=== PATIENT | female | born 1990 | race Caucasian/White ===

== ENCOUNTER 2018-05-16 10:24 | Emergency (ER) | payer OTHER ==
--- OUTSIDE RECORDS SUMMARY | 2018-05-16 10:27 | XMS REPORT ---
:1990 [facility] Address [address] [place] [address] Care Team Providers Name Role Phone Unavailable Unavailable Unavailable Payers Payer Name Policy Type Policy Number Effective Date Expiration Date Problems This patient has no known problems. Allergies, Adverse Reactions, Alerts Allergy Name Allergy Status Severity Reaction(s) Onset Inactive Treating Comments Type Date Date Clinician mauriciotriptpao SCHROEDER Active MO 2018-03 00:00:0 0 Medications This patient has no known medications. Results Test Description Test Time Test Comments Text Results Atomic Results Result Comments THYROID STIMULATING HORMONE 2018-04-19 14:22:00 Test Item Value Reference Range Comments THYROID STIMULATING HORMONE 9.48 0.36-3.74 Test Performed in [employer] (test code=TSH) Units/mL COMPREHENSIVE METABOLIC [id number] 14:21:00 Test Item Value Reference Range Comments SODIUM (test code=NA) 137 mEq/L 135-145 POTASSIUM (test code=K) 4.0 mEq/L 3.5-5.0 CHLORIDE (test code=CL) 102 mEq/L 100-115 CARBON DIOXIDE (test code=CO2) 23 mEq/L 22-31 ANION GAP (test code=GAP) 16.50 10-20 GLUCOSE (test code=GLU) 94 mg/dL 65-110 BLOOD UREA NITROGEN (test code=BUN) 8 mg/dL 7-18 GLOMERULAR FILTRATION RATE (test code=GFR) 76 ml/min >60 CREATININE (test code=CREAT) 0.9 mg/dL 0.5-1.0 TOTAL PROTEIN (test code=PROT) 8.2 gm/dL 6.3-8.2 ALBUMIN (test code=ALB) 3.6 gm/dL 3.4-4.8 CALCIUM (test code=CA) 9.6 mg/dL 8.4-10.2 BILIRUBIN TOTAL (test code=BILT) 0.5 mg/dL 0.2-1.0 SGOT/AST (test code=AST) 39 units/L 15-37 SGPT/ALT (test code=ALT) 46 units/L 12-78 ALKALINE PHOSPHATASE TOTAL (test code=ALKP) 69 units/L 46-116 [id number] 14:21:00 Test Item Value Reference Range Comments AMYLASE (test code=NAVEED) 34 units/L 30-110 [id number] 14:21:00 Test Item Value Reference Range Comments LIPASE (test code=LIP) 131 units/L 73-393 UA RFLX MICR CULT IF [id number] 13:58:00 Test Item Value Reference Range Comments UA COLOR (test code=COLU) YELLOW YELLOW UA APPEARANCE (test code=APPU) CLOUDY CLEAR UA GLUCOSE DIPSTICK (test code=DGLUU) NEGATIVE NEG UA BILIRUBIN DIPSTICK (test code=BILU) NEGATIVE NEG UA KETONE DIPSTICK (test code=KETU) NEGATIVE NEG UA SPECIFIC GRAVITY (test code=SGU) 1.020 1.001-1.035 UA BLOOD DIPSTICK (test code=KIRBY) NEG NEG UA PH DIPSTICK (test code=SAMIR) 5.0 5-9 UA PROTEIN DIPSTICK (test code=PROU) NEGATIVE NEG UA UROBILINIOGEN DIPSTICK (test code=URO) NEGATIVE mg/dL NEG UA NITRITE DIPSTICK (test code=ERNESTINE) POSITIVE NEG UA LEUKOCYTE ESTERASE DIPSTICK (test 3+ NEG code=LEUU) UA WBC (test code=WBCU) 16-20 #/hpf NONE SEEN UA RBC (test code=RBCU) 6-10 #/hpf NONE SEEN UA EPITHELIAL CELLS (test code=EPIU) MODERATE #/HPF RARE-FEW UA BACTERIA (test code=BACU) MODERATE /HPF RARE-FEW UA MUCUS (test code=MUCU) RARE NONE SEEN CBC W/AUTO [id number] 13:53:00 Test Item Value Reference Range Comments WHITE BLOOD CELL (test code=WBC) 10.6 K/mm3 6.6-12.1 RED BLOOD CELL (test code=RBC) 4.23 M/mm3 3.45-5.01 HEMOGLOBIN (test code=HGB) 12.6 g/dL 10.7-13.9 HEMATOCRIT (test code=HCT) 37.2 % 32.1-42.1 MEAN CELL VOLUME (test code=MCV) 88 fL 84.1-94.8 MEAN CELL HGB (test code=MCH) 29.8 pg 27-35 MEAN CELL HGB CONCETRATION (test code=MCHC) 33.9 gm/dL 32.2-34.1 RED CELL DISTRIBUTION WIDTH (test code=RDW) 12.3 % 12.4-16.5 PLATELET COUNT (test code=PLT) 357 K/mm3 133-385 IMMATURE PLATELET FRACTION (test code=IPF) 2.4 % 0.0-10.8 MEAN PLATELET VOLUME (test code=MPV) 10.1 fl 9.1-12.7 NEUTROPHIL % (test code=NT%) 68.4 % 56.5-79.4 LYMPHOCYTE % (test code=LY%) 25.0 % 14.3-34.3 MONOCYTE % (test code=MO%) 5.2 % 5.1-10.4 EOSINOPHIL % (test code=EO%) 0.6 % 0.1-3.0 BASOPHIL % (test code=BA%) 0.4 % 0.1-1.0 NEUTROPHIL # (test code=NT#) 7.3 K/mm3 LYMPHOCYTE # (test code=LY#) 2.7 K/mm3 MONOCYTE # (test code=MO#) 0.6 K/mm3 EOSINOPHIL # (test code=EO#) 0.06 K/mm3 BASOPHIL # (test code=BA#) 0.0 K/mm3 RBC MORPHOLOGY REQUIRED (test code=RBCM) NORMAL NORMAL PLATELET MORPHOLOGY REQUIRED (test code=PLTMR) NORMAL NORMAL - US PRG [facility] [id number] 14:28:00 Patient Name: DANNY FOLEY Unit No: [id number] EXAMS: CPT CODE : [id number] US PRG TRI ADD [id number] [facility]'[address] [address] OBSTETRICAL ULTRASOUND REPORT FETUS A Pat. Name: DANNY FOLEY Pat. No: [id number] StudyDate: 04/06/2018 12: 19pm , Age: 04 1990, 27 Pregnancies: 4, Para 2 LMP: GA by LMP: 18w0d GA by US: 05w5d GA Selected: 05w5d (From Largest) LA NENA: 12/02/2018 Referring MD: Anton Lehman Attendant Sales: Shahana Leon RDMS CPT4: [id number] Hist/Ind: VAGINAL BLEEDING SCAN 1 MEASUREMENTS AGE GROWTH EVALUATION Measurement GA Range Srce %for GA Ratios -------- --- ----- ---- ------- CRL 0.2 cm 05w5d (46j2d-61z4h) Hadl CRL 50% GA for sonogram 05w5d (14n7s-25v0g) based on (CRL) Avg Heart Rate: 98 bpm MATERNAL ANATOMY Ovaries LxHxW (cm) Right 3.1 x 1.7 x 1.4 Vol: 3.9cc Left 2.9x 2.4 x 2.6 Vol: 9.5cc Ovarian Cysts LxHxW (cm) L1: 2.2 x 1.8 x 2.1 Desc: Corpus Luteum CLINICAL SUMMARY Type of Gestation: monochorionic, diamniotic Twin A Intrauterine in variable presentation. size is LESS THAN LMP (HX OF IRREGULAR CYCLES) motion and organs seen: heart motion seen abnormalities observed: None seen at this exam Placental location: Forming Amniotic fluid volume is normal. Uterus and adnexa: Subchorionic bleed in lower left uterus-15x 10x 24mm Recommend repeat in 2 weeks for progression. Thank you for allowing us to participate in the care of this patient. [facility] NAME: DANNY FOLEY Radiology Department PHYS: Anton Medina [address] : 1990 AGE: 27 SEX: F [place], [place] [address] LOC: JENI PHONE #: [phone] EXAM DATE: 04/06/2018 STATUS: KASIA ER FAX #: [phone] RAD NO: Page 1 Signed Report (CONTINUED) Patient Name: DANNY FOLEY Unit No: [id number] EXAMS: CPT CODE: [id number] US PRG 1ST TRI [place] ADD [id number] &lt ;Continued> Jeff Ya M.D. Electronic Signature 04/06/2018 02:28pm FETUS B Pat. Name: DANNY FOLEY Pat. No: [id number] Study Date: 04/06/2018 12:19pm , Age: 04 1990, 27 Pregnancies: 4, Para 2 LMP: 12/01/2017 GA by LMP: 18w0d GA by US: 05w5d GA Selected: 05w5d (From Largest) LA NENA: 12/02/2018 Referring MD: ANTON LEHMAN Attendant Sales: Shahana Leon RDMS CPT4: [id number] Hist/Ind: VAGINAL BLEEDING SCAN 1 MEASUREMENTS AGE GROWTH EVALUATION Measurement GA Range Srce % for GARatios ----- ---- ------- ---- CRL 0.2 cm 05w5d (90u1m-41z0k) Hadl CRL 50% GA for sonogram 05w5d (05w2d -w) based on (CRL) AvgFetal Heart Rate: 85 bpm MATERNAL ANATOMY Ovaries LxHxW(cm) Right 3.1 x 1.7 x 1.4 Vol: 3.9cc Left 2.9 x 2.4 x 2.6 Vol: 9.5cc Ovarian Cysts LxHxW (cm) L1: 2.2 x 1.8 x 2.1 Desc: Corpus Luteum CLINICAL SUMMARY Type of Gestation: monochorionic, diamniotic Twin B Intrauterine in variable presentation. size is LESS THAN LMP (HX OF IRREGULAR CYCLES) motion and organs seen: heart motion seenFetal abnormalities observed: None seen at this exam Placental location: Forming Amniotic fluid volume is normal. Uterus and adnexa: Subchorionic bleed in lower left uterus-15x 10x 24mm Recommend repeat in 2 weeks for progression. Thank you for allowing us to participate in the care of this [facility] NAME: [facility] Radiology Department PHYS: MARIAH Franny LehmanAnton [address] : 1990 AGE: 27 SEX: F [place] [address] LOC: RobbyERS PHONE #: EXAM DATE: 04/06/2018 STATUS: DEP ER FAX #: RAD NO: Page 2 Signed Report (CONTINUED) Patient Name: DANNY FOLEY Unit No: [id number] EXAMS: CPT CODE: [id number] US PRG 1ST TRI EA ADD 47205 <Continued> patient. Jeff Ya M.D. ----- Electronic Signature 04/06/2018 02:28pm at 1428 Reported and signed by: Nat Ya MD CC : Kate Ornelas MD; Anton Lehman MD Technologist:Shahana Leon RDMS Probe: Trnscrbd D/ (1428) t.[email or web address].[email or web address] Orig Print D/T: S: 04/11/2018 (1258) [facility] NAME: [facility] Radiology Department PHYS: LATHA LehmanAnton [address] : 1990 AGE: 27 SEX: [place] [address] LOC: IvonneERS PHONE #: EXAM DATE: 04/06/2018 STATUS: DEP ER FAX #: [phone] RAD NO: Page 3 Signed Report Patient Name: DANNY FOLEY Unit No: [id number] EXAMS: CPT CODE: [id number] US PRG 1ST TRI EA ADD [id number] < Continued> [facility] NAME: DANNY FOLEY Radiology Department PHYS: Anton Medina [address] : 1990 AGE: 27 SEX: F [place], [place] [address]WYTQ NO: [id number] LOC: JENI PHONE #: [phone] EXAM DATE: 04/06/2018 STATUS: DEP ER FAX #: [phone] RAD NO: Page 4 Signed Report- US PREG UT [id number] 14:28:00 Patient Name: DANNY FOLEY Unit No: [id number] EXAMS : CPT CODE: [id number] US PREG [place] TRANSVAGINAL [address] [facility] [address] [place], [place] [address] OBSTETRICAL ULTRASOUND REPORT FETUS A Pat. Name: DANNY FOLEY Pat. No: [id number] StudyDate: 04/06/2018 12:19pm , Age: 04 1990, 27 Pregnancies: 4, Para 2 LMP: 12/01/2017 GA by LMP: 18w0d GA by US: 05w5d GA Selected: 05w5d (From Largest) LA NENA: 12/02/2018 Referring MD : Anton Lehman Attendant Sales: Shahana Leon RDMS CPT4: [id number] Hist/Ind: VAGINAL BLEEDING SCAN 1 MEASUREMENTS AGE GROWTH EVALUATION Measurement GA Range Srce % for GA Ratios ----- ---- ------- ----- CRL 0.2 cm 05w5d (83r3s-97t8c) Hadl CRL 50% GA for sonogram 05w5d ( 11r7d-86m3v) based on (CRL) Avg Heart Rate: 98 bpm - MATERNAL ANATOMY Ovaries LxHxW (cm) Right 3.1 x 1.7 x 1.4 Vol: 3.9cc Left 2.9x 2.4 x 2.6 Vol : 9.5cc - Ovarian Cysts LxHxW (cm) L1: 2.2 x 1.8 x 2.1 Desc: Corpus Luteum CLINICAL SUMMARY Type of Gestation: monochorionic, diamniotic Twin A Intrauterine in variable presentation. size is LESS THAN LMP (HX OF IRREGULAR CYCLES ) motion and organs seen: heart motion seen abnormalities observed: None seen at this exam Placental location: Forming Amniotic fluid volume is normal. Uterus and adnexa: Subchorionic bleed in lower left uterus-15x 10x 24mm Recommend repeat in 2 weeks for progression. Thank you for allowing us to participate in the care of this patient. [facility] NAME: DANNY FOLEY Radiology Department PHYS: Anton Medina [address] : 1990 AGE : 27 SEX: F [place], [place] [address] LOC : JENI PHONE #: [phone] EXAM DATE: 04/06/2018 STATUS : [facility] ER FAX #: [phone] RAD NO: Page 1 Signed Report (CONTINUED) Patient Name: DANNY FOLEY Unit No: [id number] EXAMS: CPT CODE: [id number] US PREG MT TRANSVAGINAL [address] <Continued> Jeff Ya M.D. Electronic Signature 04/06/2018 02:28pm FETUS B Pat. Name: DANNY FOLEY Pat. No: [id number] Study Date: 04/06/2018 12:19pm , Age: 04 1990, 27 Pregnancies: 4, Para 2 LMP: 12/01/2017 GA by LMP: 18w0d GA by US: 05w5d GA Selected: 05w5d (From Largest) LA NENA: 12/02/2018 Referring MD: ANTON LEHMAN Attendant Sales: Shahana Leon RDMS CPT4: [id number] Hist/Ind: VAGINAL BLEEDING SCAN 1 ------ MEASUREMENTS AGE GROWTH EVALUATION Measurement GA Range Srce %for GARatios ----- ---- ------- CRL 0.2 cm 05w5d (40o0y-60z5r) Hadl CRL 50% GA for sonogram 05w5d (03w2n-14o8p) based on (CRL) AvgFetal Heart Rate: 85 bpm MATERNAL ANATOMY ----- Ovaries LxHxW (cm) Right 3.1 x 1.7 x 1.4 Vol: 3.9cc Left 2.9 x 2.4 x 2.6 Vol: 9.5cc ----- Ovarian Cysts LxHxW (cm) L1: 2.2 x 1.8 x 2.1 Desc: Corpus Luteum CLINICAL SUMMARY Type of Gestation: monochorionic, diamniotic Twin B Intrauterine in variable presentation. size is LESS THAN LMP (HX OF IRREGULAR CYCLES) motion and organs seen: heart motion seenFetal abnormalities observed: None seen at this exam Placental location: Forming Amniotic fluid volume is normal. Uterus and adnexa: Subchorionic bleed in lower left uterus-15x 10x 24mm Recommend repeat in 2 weeks for progression. Thank you for allowing us to participate in the care of this [facility] NAME: DANNY FOLEY Radiology Department PHYS: Anton Veronica [address] : 1990 AGE: 27 SEX: F [place], [place] [address] LOC: JENI PHONE #: [phone] EXAM DATE: 04/06/2018 STATUS: DEP ER FAX #: [phone] RAD NO: Page 2 Signed Report (CONTINUED) Patient Name: DANNY FOLEY Unit No: [id number] EXAMS: CPT CODE: [id number] [facility] TRANSVAGINAL [address] <Continued> patient. Jeff Ya M.D. Electronic Signature 04/06/2018 02:28pm at 1428 Reported and signed by: Nat Ya MD CC: Kate Ornelas MD; Anton Lehman MD Technologist:Shahana Leon Probe: [id number] Trnscrbd D/T : 04/06/2018 (1423) Johan Orig Print D/T: S: 04/11/2018 (1250) [facility] NAME: DANNY FOLEY Radiology Department PHYS: [facility] [address] : 1990 AGE: 27 SEX: F [place] [address] [facility] #: [phone] EXAM DATE: 04/06/2018 STATUS: DEP ER FAX #: [phone] RAD NO: Page 3 Signed Report Patient Name: DANNY FOLEY Unit No: [id number] EXAMS: CPT CODE: [id number] US PREG UT TRANSVAGINAL [address] <Continued> [facility] NAME: DANNY FOLEY Radiology Department PHYS: [facility] [address] : 1990 AGE: 27 SEX: [place], [place] [address]XXZM NO: [id number] LOC: IvonneERS PHONE #: [phone] EXAM DATE: 04/06/2018 STATUS: DEP ER FAX #: [phone] RAD NO: Page 4 Signed Report- US PREG EVAL 1ST [id number] 14:28:00 Patient Name: DANNY FOLEY Unit No : [id number] EXAMS: CPT CODE: [id number] US PREG EVAL 1ST TRIMTR [address] [facility] [address] [place], [place] [address] OBSTETRICAL ULTRASOUND REPORT ---------FETUS A Pat. Name: DANNY FOLEY Pat. No: [id number] StudyDate: 04/06/2018 12:19pm , Age: [birth year] 27 Pregnancies: 4, Para 2 LMP: 12/01/2017 GA by LMP: 18w0d GA by US: 05w5d GA Selected: 05w5d (From Largest) LA NENA: Referring MD: ANTON LEHMAN Attendant Sales: Shahana Leon RDMS CPT4: [id number] Hist/Ind: VAGINAL BLEEDING SCAN 1 MEASUREMENTS AGE GROWTH EVALUATION Measurement GA Range Srce %for GA Ratios ----- ---- ------ - CRL 0.2 cm 05w5d (63d1a-02i5c) Hadl CRL 50% GA for sonogram 05w5d (43t7y-56n3b) based on (CRL) Avg Heart Rate: 98 bpm MATERNAL ANATOMY Ovaries LxHxW (cm) Right 3.1 x 1.7 x 1.4 Vol: 3.9cc Left 2.9x 2.4 x 2.6 Vol: 9.5cc Ovarian Cysts LxHxW (cm) L1: 2.2 x 1.8 x 2.1 Desc: Corpus Luteum ----- CLINICAL SUMMARY Type of Gestation: monochorionic, diamniotic Twin A Intrauterine in variable presentation. size is LESS THAN LMP (HX OF IRREGULAR CYCLES) motion and organs seen: heart motion seen abnormalities observed: None seen at this exam Placental location: Forming Amniotic fluid volume is normal. Uterus and adnexa: Subchorionic bleed in lower left uterus-15x 10x 24mm Recommend repeat in 2 weeks for progression. Thank you for allowing us to participate in the care of this patient. [facility] NAME: DANNY FOLEY Radiology Department PHYS: Anton Medina [address] : 1990 AGE: 27 SEX: F [place], [place] [address] LOC: JNEI PHONE #: [phone] EXAM DATE: 04/06/2018 STATUS: REG ER FAX #: [phone] RAD NO: Page 1 Signed Report ( CONTINUED) Patient Name: DANNY FOLEY Unit No: [id number] EXAMS: CPT CODE: [id number] US PREG EVAL 1ST TRIMTR 81156 <Continued> Jeff Ya M.D. Electronic Signature 04/06/2018 02:28pm -- FETUS B Pat. Name : DANNY FOLEY Pat. No: [id number] Study Date: 04/06/2018 12:19pm , Age: 04 1990, 27 Pregnancies: 4, Para 2 LMP: GA by LMP: 18w0d GA by US: 05w5d GA Selected: 05w5d (From Largest ) LA NENA: 12/02/2018 Referring MD: ANTON LEHMAN Attendant Sales: Shahana Leon RDMS CPT4: [id number] Hist/Ind: VAGINAL BLEEDING SCAN 1 MEASUREMENTS AGE GROWTH EVALUATION Measurement GA Range Srce %for GARatios ---- - ---- ------- CRL 0.2 cm 05w5d (05w2d -06w1d) Hadl CRL 50% GA for sonogram 05w5d (66q0h-51u1u) based on (CRL) AvgFetal Heart Rate: 85 bpm MATERNAL ANATOMY Ovaries LxHxW(cm) Right 3.1 x 1.7 x 1.4 Vol: 3.9cc Left 2.9 x 2.4 x 2.6 Vol: 9.5cc Ovarian Cysts LxHxW (cm) L1: 2.2 x 1.8 x 2.1 Desc: Corpus Luteum --- CLINICAL SUMMARY Type of Gestation: monochorionic, diamniotic Twin B Intrauterine in variable presentation. size is LESS THAN LMP (HX OF IRREGULAR CYCLES) motion and organs seen: heart motion seenFetal abnormalities observed: None seen at this exam Placental location: Forming Amniotic fluid volume is normal. Uterus and adnexa: Subchorionic bleed in lower left uterus-15x 10x 24mm Recommend repeat in 2 weeks for progression. Thank you for allowing us to participate in the care of this [facility] NAME: DANNY FOLEY Radiology Department PHYS: Anton Medina [address] : AGE: 27 SEX: F [place] [address] LOC: IvonneERS PHONE #: [phone] EXAM DATE: STATUS: REG ER FAX #: [phone] RAD NO: Page 2 Signed Report (CONTINUED) Patient Name: DANNY FOLEY Unit No: [id number] EXAMS : CPT CODE: [id number] US PREG [id number] TRIMTR [address]1533 <Continued> patient. Jeff Ya M.D. Electronic Signature 02:28pm Electronically Signed by Nat Ya MD on 04/06 at 1428 Reported and signed by: Nat Ya MD CC: Kate Ornelas MD; Anton Lehman MD Technologist:Shahana Leon RDMS Probe: Trnscrbd D/ (1428) t.SDR.CER Orig Print D/T: S: 04/06/2018 (1430) [facility] NAME : DANNY FOLEY Radiology Department PHYS: Anton Medina [address] : 1990 AGE: 27 SEX: F [place] [address] LOC: IvonneERS PHONE #: [phone] EXAM DATE: STATUS: REG ER FAX #: [phone] RAD NO: Page 3 Signed Report Patient Name: DANNY FOLEY Unit No: [id number] EXAMS: CPT CODE: [id number] US PREG EVAL 1ST TRIMTR 311[address] <Continued> [facility] [place] [facility] NAME: DANNY FOLEY Radiology Department PHYS: LATHA Franny Lehman Anton [address] : 1990 AGE: 27 SEX: F [place], [place] [address]JMRM NO: [id number] LOC: IvonneERS PHONE #: [phone] EXAM DATE: 04/06/2018 STATUS: REG ER FAX #: RAD NO: Page 4 Signed ReportHCG [id number] 13:02:00 Test Item Value Reference Range Comments HCG SERUM (test code=HCG) 9259 INTERPRETATION:VALUES BETWEEN 15-20 milliInternational units/mL NEED TO BERETESTED WITHIN 48 HOURS. All units for these ranges are in milliInternationalunits/mL0-1 WK AFTER CONCEPTION 0-50 1-2 WKS AFTER CONCEPTION 40-3002-3 WKS AFTER CONCEPTION 100-1,0003-4 WKS AFTER CONCEPTION 500-6,0001-2 MONTHS AFTER CONCEPTION 5,000-200,0002-3 MONTHS AFTER CONCEPTION 10,000-100,0002ND TRIMESTER 3,000-50,0003RD TRIMESTER 1,000-50,000 SPECIMENS WITH AN HCG LEVEL FROM 0-6 milliInternationalunits/mL SHOULD BE CONSIDERED NEGATIVE COMPREHENSIVE METABOLIC [id number] 12:41:00 Test Item Value Reference Range Comments SODIUM (test code=NA) 139 mEq/L 135-145 POTASSIUM (test code=K) 4.1 mEq/L 3.5-5.0 CHLORIDE (test code=CL) 105 mEq/L 100-115 CARBON DIOXIDE (test code=CO2) 27 mEq/L 22-31 ANION GAP (test code=GAP) 11.10 10-20 GLUCOSE (test code=GLU) 89 mg/dL 65-110 BLOOD UREA NITROGEN (test code=BUN) 8 mg/dL 7-18 GLOMERULAR FILTRATION RATE (test code=GFR) 76 ml/min >60 CREATININE (test code=CREAT) 0.9 mg/dL 0.5-1.0 TOTAL PROTEIN (test code=PROT) 7.4 gm/dL 6.3-8.2 ALBUMIN (test code=ALB) 3.1 gm/dL 3.4-4.8 CALCIUM (test code=CA) 9.3 mg/dL 8.4-10.2 BILIRUBIN TOTAL (test code=BILT) 0.3 mg/dL 0.2-1.0 SGOT/AST (test code=AST) 52 units/L 15-37 SGPT/ALT (test code=ALT) 49 units/L 12-78 ALKALINE PHOSPHATASE TOTAL (test code=ALKP) 69 units/L 46-116 CBC W/AUTO [id number] 12:20:00 Test Item Value Reference Range Comments WHITE BLOOD CELL (test code=WBC) 6.7 K/mm3 6.6-12.1 RED BLOOD CELL (test code=RBC) 4.00 M/mm3 3.45-5.01 HEMOGLOBIN (test code=HGB) 12.0 g/dL 10.7-13.9 HEMATOCRIT (test code=HCT) 35.6 % 32.1-42.1 MEAN CELL VOLUME (test code=MCV) 89 fL 84.1-94.8 MEAN CELL HGB (test code=MCH) 30.0 pg 27-35 MEAN CELL HGB CONCETRATION (test code=MCHC) 33.7 gm/dL 32.2-34.1 RED CELL DISTRIBUTION WIDTH (test code=RDW) 12.8 % 12.4-16.5 PLATELET COUNT (test code=PLT) 234 K/mm3 133-385 IMMATURE PLATELET FRACTION (test code=IPF) 0.0 % 0.0-10.8 MEAN PLATELET VOLUME (test code=MPV) 9.8 fl 9.1-12.7 NEUTROPHIL % (test code=NT%) 63.1 % 56.5-79.4 LYMPHOCYTE % (test code=LY%) 29.7 % 14.3-34.3 MONOCYTE % (test code=MO%) 5.7 % 5.1-10.4 EOSINOPHIL % (test code=EO%) 0.6 % 0.1-3.0 BASOPHIL % (test code=BA%) 0.3 % 0.1-1.0 NEUTROPHIL # (test code=NT#) 4.2 K/mm3 LYMPHOCYTE # (test code=LY#) 2.0 K/mm3 MONOCYTE # (test code=MO#) 0.4 K/mm3 EOSINOPHIL # (test code=EO#) 0.04 K/mm3 BASOPHIL # (test code=BA#) 0.0 K/mm3 RBC MORPHOLOGY REQUIRED (test code=RBCM) NORMAL NORMAL PLATELET MORPHOLOGY REQUIRED (test code=PLTMR) NORMAL NORMAL UA RFLX MICR CULT IF [id number] 11:51:00 Test Item Value Reference Range Comments UA COLOR (test code=COLU) YELLOW YELLOW UA APPEARANCE (test code=APPU) CLEAR CLEAR UA GLUCOSE DIPSTICK (test code=DGLUU) NEGATIVE NEG UA BILIRUBIN DIPSTICK (test code=BILU) NEGATIVE NEG UA KETONE DIPSTICK (test code=KETU) NEGATIVE NEG UA SPECIFIC GRAVITY (test code=SGU) 1.017 1.001-1.035 UA BLOOD DIPSTICK (test code=KIRBY) NEG NEG UA PH DIPSTICK (test code=SAMIR) 5.0 5-9 UA PROTEIN DIPSTICK (test code=PROU) NEGATIVE NEG UA UROBILINIOGEN DIPSTICK (test code=URO) NEGATIVE mg/dL NEG UA NITRITE DIPSTICK (test code=ERNESTINE) NEG NEG UA LEUKOCYTE ESTERASE DIPSTICK (test NEG NEG code=LEUU) UA WBC (test code=WBCU) 3-5 #/hpf NONE SEEN UA RBC (test code=RBCU) NONE SEEN #/hpf NONE SEEN UA EPITHELIAL CELLS (test code=EPIU) RARE #/HPF RARE-FEW UA BACTERIA (test code=BACU) RARE /HPF RARE-FEW UA MUCUS (test code=MUCU) RARE NONE SEEN UR HCG [id number] 11:51:00 Test Item Value Reference Range Comments UR HCG QUAL (test code=HCGQLU) POSITIVE UA RFLX MICR CULT IF [id number] 11:50:00 Test Item Value Reference Range Comments UA COLOR (test code=COLU) YELLOW UA APPEARANCE (test code=APPU) CLEAR UA GLUCOSE DIPSTICK (test code=DGLUU) NEGATIVE UA BILIRUBIN DIPSTICK (test code=BILU) NEGATIVE UA KETONE DIPSTICK (test code=KETU) NEGATIVE UA SPECIFIC GRAVITY (test code=SGU) 1.001-1.035 UA BLOOD DIPSTICK (test code=KIRBY) NEGATIVE UA PH DIPSTICK (test code=SAMIR) 5-9 UA PROTEIN DIPSTICK (test code=PROU) NEGATIVE UA UROBILINIOGEN DIPSTICK (test code=URO) EU/dL <=1.0 UA NITRITE DIPSTICK (test code=ERNESTINE) NEGATIVE UA LEUKOCYTE ESTERASE DIPSTICK (test code=LEUU) NEG UA WBC (test code=WBCU) #/hpf NONE SEEN UA EPITHELIAL CELLS (test code=EPIU) #/HPF RARE-FEW UR HCG [id number] 11:50:00 Test Item Value Reference Range Comments UR HCG QUAL (test code=HCGQLU) POSITIVE - US PREG 1ST [id number] 13:26:00 Name: DANNY FOLEYland : 1990 Age/S: 27 / F [id number] [address] Unit #: [id number] Loc: [place] [address] Phys: Roderick Marsh MD Acct: [id number] Dis Date: Status : REG ER PHONE #: [phone] Exam Date: 04/04/2018 1215 FAX #: Reason: abdominal pain, 5 weeks EXAMS: CPT: [id number] US PREG 1ST TRIMTR [id number] PELVIC AND TRANSVAGINAL ULTRASOUND LOCATION: B2 CLINICAL HISTORY: Abdominal pain. 5 weeks . COMPARISON: No previous exam available. TECHNIQUE: Multiple high resolution images were obtained through the pelvis using a multifrequency curved transducer followed by a transvaginal probe. FINDINGS: The uterusis of normal size, shape, and echogenicity. It measures 9.7 x 4.4 x 5.1 cm. A gestational sac and 2 yolk sacs are present. A pole is not identified. The bilateral ovaries are normal in size, shape, and echogenicity. Vascular flow is documented; there is no evidence of torsion. The right ovary measures 2.2 x 1.2 x 2 2.2 cm. The left ovary measures 3.0 x 2.5 x 2.5 cm and contains a septated cyst that measures 2.1 x 1.4 x 1.3 cm. No mass or freefluid is seen in the cul-de-sac or bilateral adnexa. IMPRESSION: Possible twin gestation. Findings may reflect gestational age too early for pole visualization or nonviable . Recommend follow-up by serial beta-hCG levels. Septated left ovarian cyst. Recommend follow-up. Electronically Signed by Makenzie Tapia 04/04/2018 at 0926 Reported and signed by: Nicki Clayton M.D. CC: Kate Ornelas MD; Roderick Marsh MD Technologist: Cherise Josue RDMS Trnscb Date/Time: 04/04/2018 (3242) Taylor.JSL PAGE 1 Signed Report Name: DANNY FOLEY : 1990 Age/S: 27 / F [id number] [address] Unit #:[id number] Loc : [place] [address] Phys: Roderick Marsh MD Acct: [id number] Dis Date: Status: REG ER PHONE #: [phone] Exam Date: 04/04/2018 1215 FAX #: Reason: abdominal pain, 5 weeks EXAMS: CPT: [id number] US PREG 1ST TRIMTR [id number] < Continued> Orig Print D/T: S: 04/04/2018 (1329) Probe: PAGE 2 Signed Report- US PREG UT [id number] 13:26:00 Name: DANNY FOLEYland : 1990 Age/S: 27 / F [id number] [address] Unit #: [id number] Loc: [place] [address] Phys: Roderick Marsh MD Acct: [id number] Dis Date: Status: REG ER PHONE #: [phone] Exam Date: 04/04/2018 1210 FAX #: Reason: abdominal pain, 5 weeks EXAMS: CPT: [id number] US PREG UT TRANSVAGINAL [id number] PELVIC AND TRANSVAGINAL ULTRASOUND LOCATION: B2 CLINICAL HISTORY: Abdominal pain. 5 weeks . COMPARISON: No previous exam available. TECHNIQUE: Multiple high resolution images were obtained through the pelvis using a multifrequency curved transducer followed by a transvaginal probe. FINDINGS: The uterusis of normal size, shape, and echogenicity. It measures 9.7 x 4.4 x 5.1 cm. A gestational sac and 2 yolk sacs are present. A pole is not identified. The bilateral ovaries are normal in size, shape, and echogenicity. Vascular flow is documented; there is no evidence of torsion. The right ovary measures 2.2 x 1.2 x 2 2.2 cm. The left ovary measures 3.0 x 2.5 x 2.5 cm and contains a septated cyst that measures 2.1 x 1.4 x 1.3 cm. No mass or freefluid is seen in the cul-de-sac or bilateral adnexa. IMPRESSION: Possible twin gestation. Findings may reflect gestational age too early for pole visualization or nonviable . Recommend follow-up by serial beta-hCG levels. Septated left ovarian cyst. Recommend follow-up. Electronically Signed by Makenzie Tapia 04/04/2018 at 1326 Reported and signed by: Nicki Clayton M.D. CC: Kate Ornelas MD; Roderick Marsh MD Technologist: Cherise Josue RDMS Trnflb Date/Time: 04/04/2018 (9767) Taylor.JSL PAGE 1 Signed Report Name: DANNY FOLEY [facility] : 1990 Age/S: 27 / F [address] [address] Unit #:[id number] Loc : [place] [address] Phys: Roderick Marsh MD Acct: [id number] Dis Date: Status: REG ER PHONE #: [phone] Exam Date: 04/04/2018 1210 FAX #: Reason: abdominal pain, 5 weeks EXAMS: CPT: [id number] PREG UT TRANSVAGINAL [id number] <Continued> Orig Print D/T: S: 04/04/2018 (4075) Probe: [id number] PAGE 2 Signed ReportHCG [id number] 11:46:00 Test Item Value Reference Range Comments HCG SERUM (test 4414 mi-IU/ML 0-6 0 - 6 NOT code=HCG) > 6 SUGGESTIVE OF EARLY RISES TWO FOLD EVERY 2 DAYS; SUGGEST RECONFIRMING AFTER 2 DAYS. 150,000-200,[address] TRIMESTER 10,000 - 50,000 2ND & 3RD TRIMESTER COMPREHENSIVE METABOLIC [id number] 11:30:00 Test Item Value Reference Range Comments SODIUM (test code=NA) 139 mmol/L 134-147 POTASSIUM (test code=K) 3.6 mmol/L 3.4-5.0 CHLORIDE (test code=CL) 107 mmol/L 100-108 CARBON DIOXIDE (test code=CO2) 26 mmol/L 21-32 ANION GAP (test code=GAP) 6.0 GAP calc 4.0-15.0 GLUCOSE (test code=GLU) 81 MG/DL 70-110 BLOOD UREA NITROGEN (test code=BUN) 8 MG/DL 7-18 GLOMERULAR FILTRATION RATE (test >=60 max estimate estGFR >60 code=GFR) CREATININE (test code=CREAT) 0.7 MG/DL 0.6-1.0 TOTAL PROTEIN (test code=PROT) 7.1 G/DL 6.4-8.2 ALBUMIN (test code=ALB) 3.4 G/DL 3.4-5.0 GLOBULIN (test code=GLOB) 3.7 GM/dL ALBUMIN/GLOBULIN RATIO (test 0.9 RATIO 1.2-2.2 code=A/G) CALCIUM (test code=CA) 8.1 MG/DL 8.5-10.1 BILIRUBIN TOTAL (test code=BILT) 0.40 MG/DL 0.2-1.2 SGOT/AST (test code=AST) 66 Unit/L 15-37 SGPT/ALT (test code=ALT) 83 Unit/L 12-78 ALKALINE PHOSPHATASE TOTAL (test 65 Unit/L 45-117 code=ALKP) CBC W/AUTO [id number] 11:15:00 Test Item Value Reference Range Comments WHITE BLOOD CELL (test code=WBC) 6.9 K/mm3 3.5-11.0 RED BLOOD CELL (test code=RBC) 3.94 M/mm3 4.70-6.10 HEMOGLOBIN (test code=HGB) 12.0 G/DL 10.4-14.9 HEMATOCRIT (test code=HCT) 34.6 % 31.5-44.1 MEAN CELL VOLUME (test code=MCV) 87.8 Fl 84.5-98.6 MEAN CELL HGB (test code=MCH) 30.5 pg 27.0-34.2 MEAN CELL HGB CONCETRATION (test code=MCHC) 34.7 G/DL 31.5-34.0 RED CELL DISTRIBUTION WIDTH (test code=RDW) 13.1 SD 11.5-14.5 PLATELET COUNT (test code=PLT) 241.0 K/mm3 150-450 MEAN PLATELET VOLUME (test code=MPV) 9.50 fL 7.0-10.5 NEUTROPHIL % (test code=NT%) 72.8 % 40-76 LYMPHOCYTE % (test code=LY%) 20.9 % 20.5-51.1 MONOCYTE % (test code=MO%) 5.8 % 1.7-9.3 EOSINOPHIL % (test code=EO%) 0.4 % 0.0-6.0 BASOPHIL % (test code=BA%) 0.1 % 0.0-2.0 NEUTROPHIL # (test code=NT#) 5.01 K/mm3 1.8-7.6 LYMPHOCYTE # (test code=LY#) 1.4 K/mm3 0.6-3.2 MONOCYTE # (test code=MO#) 0.4 K/mm3 0.3-1.1 EOSINOPHIL # (test code=EO#) 0.0 K/mm3 0.0-0.4 BASOPHIL # (test code=BA#) 0.0 K/mm3 0.0-0.1 MANUAL DIFF REQUIRED (test code=MDIFF) NO DIFF/SCN CRITERIA
[2018-05-16 11:36] LABS: Urine Blood NEGATIVE (NEG); Urine Glucose NEGATIVE (NEG); Urine Protein NEGATIVE (NEG)
[2018-05-16 11:36] LABS: Absolute Lymphocytes (CBC) 2.1 K/uL (0.7-4.9); Absolute Monocytes 0.4 K/uL (0.1-1.3); Absolute Neutrophil 6.4 K/uL (1.8-8.0); Basophils % 0.5 % (0-1.3); Eosinophils % 1.2 % (0-4.4); MPV 8.7 fL (7.6-11.3); Monocytes % 4.7 % (3.3-12.3); RBC Red Blood Cell Count 3.65 M/uL (3.86-4.86)
[2018-05-16 11:37] LABS: Protime INR 1.05
[2018-05-16] MEDS ORDERED: ACETAMINOPHEN 500 MG TAB ONE (11:38)
[2018-05-16] MEDS ORDERED: METOCLOPRAMIDE 10 MG/2mL INJ ONE (11:38)
[2018-05-16] MEDS ORDERED: NA CHLORIDE 0.9% 1,000 ML ONE (11:39)
[2018-05-16 11:41] LABS: Urine Bacteria <20 /HPF (<20); Urine Culture Reflex Order NOT NEEDED; Urine RBC <5 /HPF (NONE SEEN)
[2018-05-16 11:55] LABS: ALT/SGPT 31 U/L (12-78); AST/SGOT 33 U/L (15-37); Alkaline Phosphatase 68 U/L (45-117); BUN Blood Urea Nitrogen 8 mg/dL (7-18); Bicarbonate 23 mmol/L (21-32); Bilirubin Direct < 0.1 mg/dL (0-0.2); Bilirubin Total 0.2 mg/dL (0.2-1.0); Glucose Level 88 mg/dL (74-106); Magnesium 1.9 mg/dL (1.8-2.4); NT PRO-BNP 125 pg/mL (<125); Potassium 3.9 mmol/L (3.5-5.1); Sodium Level 138 mmol/L (136-145); Troponin (Emerg Dept Use Only) < 0.02 ng/mL (0.0-0.045)
--- NOTE | 2018-05-16 13:15 | EDPHYS ---
Physician Documentation [facility] Name: Lacey Gross Age: 28 yrs Sex: Female : 1990 Arrival Date: 05/16/2018 Time: 10:26 Bed 25 Private MD: ED Physician Bruno Pratt HPI: 05/16 11:03 This 28 yrs old Female presents to ER via Ambulatory with complaints of Chest ma2 Pain, Numbness Of Arm, Headache, Back Pain. 11:03 The patient or guardian reports chest pain that is located primarily in the anterior ma2 chest wall. Associated signs and symptoms: Pertinent positives: Pertinent negatives: abdominal pain, cough, diaphoresis, dizziness, headache, lower extremity pain, lower extremity swelling, lightheadedness, nausea, near syncope, palpitations, recent travel, shortness of breath, syncope, vomiting. The chest pain is described as a pressure. Modifying factors: The symptoms are alleviated by remaining still, the symptoms are aggravated by palpation of area, twisting torso. Severity of pain: At its worst the pain was moderate in the emergency department the pain is unchanged. also has mild headache that is gradual unchanged from prior headache and has hx of migraine . 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 - Social history:: Smoking status: Patient/guardian denies using tobacco, Patient/guardian denies using alcohol, street drugs, The patient lives with family. - Ebola Screening: : Patient denies travel to an Ebola-affected area in the 21 days before illness onset. - Family history:: not pertinent. ROS: 11:03 Constitutional: Negative for fever, chills, and weight loss, Cardiovascular: Negative ma2 for chest pain, palpitations, and edema, Respiratory: Negative for shortness of breath, cough, wheezing, and pleuritic chest pain, Abdomen/GI: Negative for abdominal pain, nausea, diarrhea, and constipation. 11:03 Cardiovascular: Positive for chest pain, Negative for edema, orthopnea, palpitations, paroxysmal nocturnal dyspnea, acute changes. 11:03 All other systems are negative. Exam: 11:03 Constitutional: This is a well developed, well nourished patient who is awake, alert, ma2 and in no acute distress. Head/Face: Normocephalic, atraumatic. ENT: Nares patent. No nasal discharge, no septal abnormalities noted. Tympanic membranes are normal and external auditory canals are clear. Oropharynx with no redness, swelling, or masses, exudates, or evidence of obstruction, uvula midline. Mucous membranes moist. Neck: Trachea midline, no thyromegaly or masses palpated, and no cervical lymphadenopathy. Supple, full range of motion without nuchal rigidity, or vertebral point tenderness. No Meningismus. Cardiovascular: Regular rate and rhythm with a normal S1 and S2. No gallops, murmurs, or rubs. Normal PMI, no JVD. No pulse deficits. Respiratory: Lungs have equal breath sounds bilaterally, clear to auscultation and percussion. No rales, rhonchi or wheezes noted. No increased work of breathing, no retractions or nasal flaring. Abdomen/GI: Soft, non-tender, with normal bowel sounds. No distension or tympany. No guarding or rebound. No evidence of tenderness throughout. Back: No spinal tenderness. No costovertebral tenderness. Full range of motion. MS/ Extremity: Pulses equal, no cyanosis. Neurovascular intact. Full, normal range of motion. Neuro: Awake and alert, GCS 15, oriented to person, place, time, and situation. Cranial nerves II-XII grossly intact. Motor strength 5/5 in all extremities. Sensory grossly intact. Cerebellar exam normal. Normal gait. 11:03 Chest/axilla: Inspection: normal, Palpation: crepitus, is not appreciated, tenderness, that is mild, of the anterior aspect of left upper chest and mid-sternal area, Axilla: are normal, Breasts: are normal. 11:03 Musculoskeletal/extremity: no LE edema . Vital Signs: 10:45 BP 124 / 79; Pulse 93; Resp 18; Temp 98.0(O); Pulse Ox 97% on R/A; Weight 111.13 kg aj1 (R); Height 5 ft. 4 in. (162.56 cm) (R); 11:38 BP 101 / 70; Pulse 84; Resp 18; Pulse Ox 100% on R/A; aj1 12:30 BP 104 / 77; Pulse 78; Resp 18; Pulse Ox 99% on R/A; aj1 10:45 Body Mass Index 42.05 (111.13 kg, 162.56 cm) aj1 MDM: 10:34 Patient medically screened. mn2 11:03 Differential diagnosis: gastroesophageal reflux disease (GERD), MSK pain vs bronchitis, ma2 clinically significant PE is unlikely given normal vs and reproducible chest pain, pre-eclampsia unlikely. 13:13 Data reviewed: vital signs, nurses notes. Counseling: I had a detailed discussion with ma2 the patient and/or guardian regarding: the need for outpatient follow up. Response to treatment: the patient's symptoms have resolved after treatment. 05/16 11:01 Order name: Urine Microscopic Only; Complete [facility]: [facility] 05/[facility] 11:03 Order name: Basic Metabolic Panel; Complete Time: 12:46 [facility] 05/16 11:03 Order name: CBC with Diff; Complete Time: 11:38 mn2 05/16 11:03 Order name: LFT's; Complete Time: 12:46 [facility] 05/16 11:03 Order name: Magnesium; Complete Time: 12:46 mn2 05/16 11:03 Order name: NT PRO-BNP; Complete Time: 12:46 mn2 05/16 11:03 Order name: PT-INR; Complete Time: 12:46 [facility] 05/16 11:03 Order name: Troponin (emerg Dept Use Only); Complete Time: 12:46 mn2 05/16 11:33 Order name: Urine Dipstick--Ancillary (enter results); Complete Time: 11:38 bd 05/16 11:33 Order name: Urine --Ancillary (enter results); Complete Time: 11:38 bd 05/16 12:46 Order name: EKG Electrocardiogram [facility] 05/16 10:34 Order name: EKG - Nurse/Tech; Complete Time: 10:48 ma2 05/16 10:35 Order name: Urine Dipstick-Ancillary (obtain specimen): and test please; [facility] Complete Time: 11:01 05/16 11:03 Order name: Cardiac monitoring; Complete Time: 11:24 mn2 05/16 11:03 Order name: IV Saline Lock; Complete Time: :24 mn2 05/16 11:03 Order name: Labs collected and sent; Complete Time: :24 mn2 05/16 11:03 Order name: O2 Per Protocol; Complete Time: :24 ma2 05/16 11:03 Order name: O2 Sat Monitoring; Complete Time: :24 ma2 Administered Medications: 11:31 Drug: Tylenol 1000 mg Route: PO; aj1 11:45 Follow up: Response: No adverse reaction; Pain is decreased iw 11:32 Drug: NS 0.9% 1000 ml Route: IV; Rate: 1 bolus; Site: left antecubital; aj1 12:50 Follow up: IV Status: Completed infusion iw 11:32 Drug: Reglan 10 mg Route: IVP; Site: left antecubital; aj1 13:33 Follow up: Response: No adverse reaction; Pain is decreased iw Disposition: 05/16/18 13:14 Discharged to Home. Impression: Migraine without aura, Chest pain, unspecified. - Condition is Stable. - Prescriptions for Reglan 10 mg Oral Tablet - take 1 tablet by ORAL route every 6 hours . take 30 minutes before meals and at bedtime; 100 tablet. - Medication Reconciliation Form, Thank You Letter, Antibiotic Education, Prescription Opioid Use form. - Follow up: Private Physician; When: Tomorrow; Reason: If symptoms return, Continuance of care. Signatures: Dispatcher [employer] Maeve Couch RN RN aj1 Marianne Moreno RN RN Bruno Pratt MD MD ma2 Corrections: (The following items were deleted from the chart) 13:33 13:14 05/16/2018 13:14 Discharged to Home. Impression: Migraine without aura; Chest iw pain, unspecified. Condition is Stable. Forms are Medication Reconciliation Form, Thank You Letter, Antibiotic Education, Prescription Opioid Use. Follow up: Private Physician; When: Tomorrow; Reason: If symptoms return, Continuance of care. ma2
--- NOTE | 2018-05-16 13:15 | ER ---
Nurse's Notes [facility] Name: Lacey Gross Age: 28 yrs Sex: Female : 1990 Arrival Date: 05/16/2018 Time: 10:26 Bed 25 Private MD: Diagnosis: Migraine without aura;Chest pain, unspecified Presentation: 05/16 10:42 Presenting complaint: Patient states: She began having chest pain that she describes as aj1 heaviness yesterday, overnight the pain got worse and began to radiate to her left arm and her back. Today she started to have a headache as well. Patient reports that she is currently 11 weeks with twins. Transition of care: patient was not received from another setting of care. Onset of symptoms was May 15, 2017. Risk Assessment: Do you want to hurt yourself or someone else? Patient reports no desire to harm self or others. Initial Sepsis Screen: Does the patient meet any 2 criteria? No. Patient's initial sepsis screen is negative. Does the patient have a suspected source of infection? No. Patient's initial sepsis screen is negative. Care prior to arrival: None. 10:42 Method Of Arrival: Ambulatory aj1 10:42 Acuity: RODOLFO 3 aj1 Triage Assessment: 10:45 General: Appears in no apparent distress. uncomfortable, Behavior is calm, cooperative, aj1 appropriate for age. Pain: Complains of pain in chest Pain radiates to back and left arm. Neuro: Level of Consciousness is awake, alert, obeys commands. Cardiovascular: Patient's skin is warm and dry. 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 - Social history:: Smoking status: Patient/guardian denies using tobacco, Patient/guardian denies using alcohol, street drugs, The patient lives with family. - Ebola Screening: : Patient denies travel to an Ebola-affected area in the 21 days before illness onset. - Family history:: not pertinent. Screenin:45 Abuse screen: Denies threats or abuse. Denies injuries from another. Nutritional aj1 screening: No deficits noted. Tuberculosis screening: No symptoms or risk factors identified. 13:02 Fall Risk None identified. aj1 Assessment: 10:45 General: Appears in no apparent distress. uncomfortable, Behavior is calm, cooperative, aj1 appropriate for age. Pain: Complains of pain in chest Pain radiates to left arm and back Pain began 1 day ago. Neuro: Level of Consciousness is awake, alert, obeys commands, Oriented to person, place, time, situation, Speech is normal, Facial symmetry appears normal. Cardiovascular: Heart tones S1 S2 present Patient's skin is warm and dry. Rhythm is sinus rhythm. Respiratory: Airway is patent Respiratory effort is even, unlabored, Respiratory pattern is regular, symmetrical. GI: No signs and/or symptoms were reported involving the gastrointestinal system. : No signs and/or symptoms were reported regarding the genitourinary system. EENT: No signs and/or symptoms were reported regarding the EENT system. Derm: No signs and/or symptoms reported regarding the dermatologic system. Skin is pink, warm \T\ dry. normal. Musculoskeletal: No signs and/or symptoms reported regarding the musculoskeletal system. Circulation, motion, and sensation intact. 11:39 Reassessment: Patient appears in no apparent distress at this time. Patient and/or aj1 family updated on plan of care and expected duration. Pain level reassessed. Patient is alert, oriented x 3, equal unlabored respirations, skin warm/dry/pink. Patient reports that every time the blood pressure cuff goes off it makes her chest pain worse. 12:35 Reassessment: Patient appears in no apparent distress at this time. No changes from aj1 previously documented assessment. Patient and/or family updated on plan of care and expected duration. Pain level reassessed. Patient is alert, oriented x 3, equal unlabored respirations, skin warm/dry/pink. Vital Signs: 10:45 BP 124 / 79; Pulse 93; Resp 18; Temp 98.0(O); Pulse Ox 97% on R/A; Weight 111.13 kg aj1 (R); Height 5 ft. 4 in. (162.56 cm) (R); 11:38 BP 101 / 70; Pulse 84; Resp 18; Pulse Ox 100% on R/A; aj1 12:30 BP 104 / 77; Pulse 78; Resp 18; Pulse Ox 99% on R/A; aj1 10:45 Body Mass Index 42.05 (111.13 kg, 162.56 cm) aj1 ED Course: 10:26 Patient arrived in ED. rg4 10:34 Bruno Pratt MD is Attending Physician. ma2 10:41 Maeve Burton RN is Primary Nurse. aj1 10:43 Triage completed. aj1 10:45 No provider procedures requiring assistance completed. Patient maintains SpO2 aj1 saturation greater than 95% on room air. 10:45 Arm band placed on Patient placed in an exam room. aj1 10:45 Patient has correct armband on for positive identification. groundwater monitoring technician on. Pulse aj1 ox on. NIBP on. Door closed. Warm blanket given. 10:46 EKG done, by technical lead. reviewed by Bruno Pratt MD. at1 13:32 IV discontinued, intact, bleeding controlled, No redness/swelling at site. Pressure iw dressing applied. Administered Medications: 11:31 Drug: Tylenol 1000 mg Route: PO; aj1 11:45 Follow up: Response: No adverse reaction; Pain is decreased iw 11:32 Drug: NS 0.9% 1000 ml Route: IV; Rate: 1 bolus; Site: left antecubital; aj1 12:50 Follow up: IV Status: Completed infusion iw 11:32 Drug: Reglan 10 mg Route: IVP; Site: left antecubital; aj1 13:33 Follow up: Response: No adverse reaction; Pain is decreased iw Outcome: 13:14 Discharge ordered by . ma2 13:32 Discharged to home ambulatory, with family. iw 13:32 Condition: good 13:32 Discharge instructions given to patient, family, Instructed on discharge instructions, follow up and referral plans. medication usage, Demonstrated understanding of instructions, follow-up care, medications, Prescriptions given X 1. 13:33 Patient left the ED. iw Signatures: Maeve Burton, RN RN aj1 Marianne Moreno RN RN iw Kia Lopes, food and beverage coordinator EKG Tat1 Chandrika Jacob rg4 Bruno Pratt MD MD okIván
--- NOTE | 2018-05-16 16:29 | EKG ---
Test Date: 2018-05-16 Test Time: 10:42:10 Plywood Patcher: JESSICA MEASUREMENT RESULTS: Intervals: Rate: 90 WI: 158 QRSD: 80 QT: 378 QTc: 462 [place]: P: 17 WI: 158 QRS: 18 T: 3 INTERPRETIVE STATEMENTS: Normal sinus rhythm Normal ECG No previous ECG available for comparison Electronically Signed On 05-16-18 16:28:06 CDT by Nakul Gordillo
== END 2018-05-16 13:33 | disposition home or self-care (01) ==
LOC: ER 10:24
DX: G43.009 Migraine without aura, not intractable, without status migrainosus (principal); R07.9 Chest pain, unspecified; E03.9 Hypothyroidism, unspecified
CPT/HCPCS: 36415; 80048; 80076; 81003; 81015; 81025; 83735; 83880; 84484; 85025; 85610; 93005; 96361; 96374; 99285; J2765; J7030

== ENCOUNTER 2018-06-15 12:51 | Emergency (ER) | payer OTHER ==
--- OUTSIDE RECORDS SUMMARY | 2018-06-15 13:04 | XMS REPORT ---
:1990 [facility] Address [address] [place] [address] Care Team Providers Name Role Phone Unavailable [...] in [employer] (test code=TSH) Units/mL COMPREHENSIVE METABOLIC [id number] 14:21:00 Test Item Value Reference Range Comments [...] PHOSPHATASE TOTAL (test code=ALKP) 69 units/L 46-116 [id number] 14:21:00 Test Item Value Reference Range Comments AMYLASE (test code=NAVEED) 34 units/L 30-110 [id number] 14:21:00 Test Item Value Reference Range Comments LIPASE (test code=LIP) 131 units/L 73-393 UA RFLX MICR CULT IF [id number] 13:58:00 Test Item Value Reference Range Comments [...] (test code=MUCU) RARE NONE SEEN CBC W/AUTO [id number] 13:53:00 Test Item Value Reference Range Comments [...] (test code=PLTMR) NORMAL NORMAL - US PRG [facility] [id number] 14:28:00 Patient Name: DANNY FOLEY Unit No: [id number] EXAMS: CPT CODE : [id number] US PRG TRI ADD [id number] [facility]'[address] [address] OBSTETRICAL ULTRASOUND REPORT FETUS A Pat. Name: DANNY FOLEY Pat. No: [id number] StudyDate: 04/06/2018 12: 19pm , Age: 04 1990, 27 Pregnancies: 4, Para 2 LMP: GA by LMP: 18w0d GA by US: 05w5d GA Selected: 05w5d (From Largest) LA NENA: 12/02/2018 Referring MD: Anton Lehman Emergency Management Program Specialist: Shahana Leon RDMS CPT4: [id number] Hist/Ind: VAGINAL BLEEDING SCAN 1 MEASUREMENTS AGE GROWTH EVALUATION Measurement GA Range Srce %for GA Ratios -------- --- ----- ---- ------- CRL 0.2 cm 05w5d (08f6y-65m3k) Hadl CRL 50% GA for sonogram 05w5d (81y1u-79a0o) based on (CRL) Avg Heart Rate: 98 [...] in the care of this patient. [facility] NAME: DANNY FOLEY Radiology Department PHYS: Anton Medina [address] : 1990 AGE: 27 SEX: F [place], [place] [address] LOC: JENI PHONE #: [phone] EXAM DATE: 04/06/2018 STATUS: KASIA ER FAX #: [phone] RAD NO: Page 1 Signed Report (CONTINUED) Patient Name: DANNY FOLEY Unit No: [id number] EXAMS: CPT CODE: [id number] US PRG 1ST TRI [place] ADD [address]013 &lt ;Continued> Jeff Ya M.D. Electronic Signature 04/06/2018 02:28pm FETUS B Pat. Name: DANNY FOLEY Pat. No: [id number] Study Date: 04/06/2018 12:19pm , Age: 04 1990, 27 Pregnancies: 4, Para 2 LMP: 12/01/2017 GA by LMP: 18w0d GA by US: 05w5d GA Selected: 05w5d (From Largest) LA NENA: 12/02/2018 Referring MD: ANTON LEHMAN Emergency Management Program Specialist: Shahana Leon RDMS CPT4: [id number] Hist/Ind: VAGINAL BLEEDING SCAN 1 MEASUREMENTS AGE GROWTH EVALUATION Measurement GA Range Srce % for GARatios ----- ---- ------- ---- CRL 0.2 cm 05w5d (18n8g-72j3q) Hadl CRL 50% GA for sonogram 05w5d [...] to participate in the care of this [facility] NAME: [facility] Radiology Department PHYS: MARIAH Franny LehmanAnton [address] : 1990 AGE: 27 SEX: F [place] [address] LOC: RobbyERS PHONE #: [phone] EXAM DATE: 04/06/2018 STATUS: DEP ER FAX #: [phone] RAD NO: Page 2 Signed Report (CONTINUED) Patient Name: DANNY FOLEY Unit No: [id number] EXAMS: CPT CODE: [id number] US PRG 1ST TRI EA ADD [address]64 <Continued> patient. Jeff Ya M.D. ----- Electronic Signature 04/06/2018 02:28pm at 1428 Reported and signed by: Nat Ya MD CC : Kate Ornelas MD; Anton Lehman MD Technologist:Shahana Leon RDMS Probe: Trnscrbd D/ (1428) t.SDR.CER Orig Print D/T: S: 04/11/2018 (1258) [facility] NAME: [facility] Radiology Department PHYS: LATHA LehmanAnton [address] : 1990 AGE: 27 SEX: [place] [address] LOC: IvonneERS PHONE #: EXAM DATE: 04/06/2018 STATUS: DEP ER FAX #: [phone] RAD NO: Page 3 Signed Report Patient Name: DANNY FOLEY Unit No: [id number] EXAMS: CPT CODE: [id number] US PRG 1ST TRI EA ADD [address]394 < Continued> [facility] NAME: DANNY FOLEY Radiology Department PHYS: Anton Medina [address] : 1990 AGE: 27 SEX: F [place], [place] [address]ZOQF NO: [id number] LOC: JENI PHONE #: [phone] EXAM DATE: 04/06/2018 STATUS: DEP ER FAX #: [phone] RAD NO: Page 4 Signed Report- US PREG UT [id number] 14:28:00 Patient Name: DANNY FOLEY Unit No: [id number] EXAMS : CPT CODE: [id number] US PREG UT TRANSVAGINAL [address] [facility] [address] [place], [place] [address] OBSTETRICAL ULTRASOUND REPORT FETUS A Pat. Name: DANNY FOLEY Pat. No: [id number] StudyDate: 04/06/2018 12:19pm , Age: 04 1990, 27 Pregnancies: 4, Para 2 LMP: 12/01/2017 GA by LMP: 18w0d GA by US: 05w5d GA Selected: 05w5d (From Largest) LA NENA: 12/02/2018 Referring MD : Anton Lehman Emergency Management Program Specialist: Shahana Leon RDMS CPT4: [id number] Hist/Ind: VAGINAL BLEEDING SCAN 1 MEASUREMENTS AGE GROWTH EVALUATION Measurement GA Range Srce % for GA Ratios ----- ---- ------- ----- CRL 0.2 cm 05w5d (77q7c-86h1s) Hadl CRL 50% GA for sonogram 05w5d ( 19w6p-10b0o) based on (CRL) Avg Heart Rate: 98 [...] in the care of this patient. [facility] NAME: DANNY FOLEY Radiology Department PHYS: Anton Medina [address] : 1990 AGE : 27 SEX: F [place], [place] [address] LOC : JENI PHONE #: [phone] EXAM DATE: 04/06/2018 STATUS : [facility] ER FAX #: [phone] RAD NO: Page 1 Signed Report (CONTINUED) Patient Name: DANNY FOLEY Unit No: [id number] EXAMS: CPT CODE: [id number] US PREG [place] TRANSVAGINAL [address] <Continued> Jeff Ya M.D. Electronic Signature 04/06/2018 02:28pm FETUS B Pat. Name: DANNY FOLEY Pat. No: [id number] Study Date: 04/06/2018 12:19pm , Age: 04 1990, 27 Pregnancies: 4, Para 2 LMP: 12/01/2017 GA by LMP: 18w0d GA by US: 05w5d GA Selected: 05w5d (From Largest) LA NENA: 12/02/2018 Referring MD: ANTON LEHMAN Emergency Management Program Specialist: Shahana Leon RDMS CPT4: [id number] Hist/Ind: VAGINAL BLEEDING SCAN 1 ------ MEASUREMENTS AGE GROWTH EVALUATION Measurement GA Range Srce %for GARatios ----- ---- ------- CRL 0.2 cm 05w5d (63i7z-66m1j) Hadl CRL 50% GA for sonogram 05w5d (24v8c-10i9v) based on (CRL) AvgFetal Heart Rate: 85 [...] participate in the care of this [facility] NAME: DANNY FOLEY Radiology Department PHYS: Anton Veronica [address] : 1990 AGE: 27 SEX: F [place], [place] [address] LOC: JENI PHONE #: [phone] EXAM DATE: 04/06/2018 STATUS: DEP ER FAX #: [phone] RAD NO: Page 2 Signed Report (CONTINUED) Patient Name: DANNY FOLEY Unit No: [id number] EXAMS: CPT CODE: [id number] [facility] TRANSVAGINAL [address] <Continued> patient. Jeff Ya M.D. Electronic Signature 04/06/2018 02:28pm at 1428 Reported and signed by: Nat Ya MD CC: Kate Ornelas MD; Anton Lehman MD Technologist:Shahana Leon Probe: [id number] Trnscrbd D/T : 04/06/2018 (1426) Johan Orig Print D/T: S: 04/11/2018 (1257) [facility] NAME: DANNY FOLEY Radiology Department PHYS: [facility] [address] : 1990 AGE: 27 SEX: F [place] [address] [facility] #: [phone] EXAM DATE: 04/06/2018 STATUS: DEP ER FAX #: [phone] RAD NO: Page 3 Signed Report Patient Name: DANNY FOLEY Unit No: [id number] EXAMS: CPT CODE: [id number] US PREG UT TRANSVAGINAL [address] <Continued> [facility] NAME: DANNY FOLEY Radiology Department PHYS: [facility] [address] : 1990 AGE: 27 SEX: [place], [place] [address]FNND NO: [id number] LOC: IvonneERS PHONE #: [phone] EXAM DATE: 04/06/2018 STATUS: DEP ER FAX #: [phone] RAD NO: Page 4 Signed Report- US PREG EVAL 1ST [id number] 14:28:00 Patient Name: DANNY FOLEY Unit No : [id number] EXAMS: CPT CODE: [id number] US PREG EVAL [address]ST TRIMTR [address] [facility] [address] [place], [place] [address] OBSTETRICAL ULTRASOUND REPORT ---------FETUS A Pat. Name: DANNY FOLEY Pat. No: [id number] StudyDate: 04/06/2018 12:19pm , Age: [birth year] 27 Pregnancies: 4, Para 2 LMP: 12/01/2017 GA by LMP: 18w0d GA by US: 05w5d GA Selected: 05w5d (From Largest) LA NENA: Referring MD: ANTON LEHMAN Emergency Management Program Specialist: Shahana Leon RDMS CPT4: [id number] Hist/Ind: VAGINAL BLEEDING SCAN 1 MEASUREMENTS AGE GROWTH EVALUATION Measurement GA Range Srce %for GA Ratios ----- ---- ------ - CRL 0.2 cm 05w5d (45i6w-43h0h) Hadl CRL 50% GA for sonogram 05w5d (43o1q-81h9t) based on (CRL) Avg Heart Rate: 98 [...] in the care of this patient. [facility] NAME: DANNY FOLEY Radiology Department PHYS: Anton Medina [address] : 1990 AGE: 27 SEX: F [place], [place] [address] LOC: JENI PHONE #: [phone] EXAM DATE: 04/06/2018 STATUS: REG ER FAX #: [phone] RAD NO: Page 1 Signed Report ( CONTINUED) Patient Name: DANNY FOLEY Unit No: [id number] EXAMS: CPT CODE: [id number] US PREG EVAL 1ST TRIMTR [address]250 <Continued> Jeff Ya M.D. Electronic Signature 04/06/2018 02:28pm -- FETUS B Pat. Name : DANNY FOLEY Pat. No: [id number] Study Date: 04/06/2018 12:19pm , Age: 04 1990, 27 Pregnancies: 4, Para 2 LMP: GA by LMP: 18w0d GA by US: 05w5d GA Selected: 05w5d (From Largest ) LA NENA: 12/02/2018 Referring MD: ANTON LEHMAN Emergency Management Program Specialist: Shahana Leon RDMS CPT4: [id number] Hist/Ind: VAGINAL BLEEDING SCAN 1 MEASUREMENTS AGE GROWTH EVALUATION Measurement GA Range Srce %for GARatios ---- - ---- ------- CRL 0.2 cm 05w5d (05w2d -06w1d) Hadl CRL 50% GA for sonogram 05w5d (02f6k-80v5x) based on (CRL) AvgFetal Heart Rate: 85 [...] participate in the care of this [facility] NAME: DANNY FOLEY Radiology Department PHYS: Anton Medina [address] : AGE: 27 SEX: F [place] [address] LOC: IvonneERS PHONE #: [phone] EXAM DATE: STATUS: REG ER FAX #: [phone] RAD NO: Page 2 Signed Report (CONTINUED) Patient Name: DANNY FOLEY Unit No: [id number] EXAMS : CPT CODE: [id number] US PREG [id number] TRIMTR 36011 <Continued> patient. Jeff Ya M.D. Electronic Signature 02:28pm Electronically Signed by Nat Ya MD on 04/06 at 1428 Reported and signed by: Nat Ya MD CC: Kate Ornelas MD; Anton Lehman MD Technologist:Shahana Leon RDMS Probe: Trnscrbd D/ (1428) t.SDR.CER Orig Print D/T: S: 04/06/2018 (1430) [facility] NAME : DANNY FOLEY Radiology Department PHYS: Anton Medina [address] : 1990 AGE: 27 SEX: F [place] [address] LOC: IvonneERS PHONE #: [phone] EXAM DATE: STATUS: REG ER FAX #: [phone] RAD NO: Page 3 Signed Report Patient Name: DANNY FOLEY Unit No: [id number] EXAMS: CPT CODE: [id number] US PREG EVAL 1ST TRIMTR 65332 <Continued> [facility] NAME: DANNY FOLEY Radiology Department PHYS: LATHA Franny Lehman Anton [address] : 1990 AGE: 27 SEX: F [place], [place] [address]HIOO NO: [id number] LOC: IvonneERS PHONE #: EXAM DATE: 04/06/2018 STATUS: REG ER FAX #: [phone] RAD NO: Page 4 Signed ReportHCG [id number] 13:02:00 Test Item Value Reference Range Comments [...] milliInternationalunits/mL SHOULD BE CONSIDERED NEGATIVE COMPREHENSIVE METABOLIC [id number] 12:41:00 Test Item Value Reference Range Comments [...] (test code=ALKP) 69 units/L 46-116 CBC W/AUTO [id number] 12:20:00 Test Item Value Reference Range Comments [...] NORMAL NORMAL UA RFLX MICR CULT IF [id number] 11:51:00 Test Item Value Reference Range Comments [...] (test code=MUCU) RARE NONE SEEN UR HCG [id number] 11:51:00 Test Item Value Reference Range Comments UR HCG QUAL (test code=HCGQLU) POSITIVE UA RFLX MICR CULT IF [id number] 11:50:00 Test Item Value Reference Range Comments [...] CELLS (test code=EPIU) #/HPF RARE-FEW UR HCG [id number] 11:50:00 Test Item Value Reference Range Comments UR HCG QUAL (test code=HCGQLU) POSITIVE - US PREG 1ST [id number] 13:26:00 Name: [place]NY [place]land : 1990 Age/S: 27 / F [address] Unit #: [id number] Loc: [place] [address] Phys: Roderick Marsh MD Acct: [id number] Dis Date: Status : REG ER PHONE #: [phone] Exam Date: 04/04/2018 1215 FAX #: Reason: abdominal pain, 5 weeks EXAMS: CPT: [id number] US PREG 1ST TRIMTR [address]2827 PELVIC AND TRANSVAGINAL ULTRASOUND LOCATION: B2 CLINICAL [...] Electronically Signed by Makenzie Tapia 04/04/2018 at 5084 Reported and signed by: Nicki Clayton M.D. CC: Kate Ornelas MD; Roderick Marsh MD Technologist: Cherise Josue RDMS Trnscb Date/Time: 04/04/2018 (6697) Taylor.JSL PAGE 1 Signed Report Name: DANNY FOLEY : 1990 Age/S: 27 / F [address] Unit #:[id number] Loc : [place] [address] Phys: Roderick Marsh MD Acct: [id number] Dis Date: Status: REG ER PHONE #: [phone] Exam Date: 04/04/2018 1215 FAX #: Reason: abdominal pain, 5 weeks EXAMS: CPT: [id number] US PREG 1ST TRIMTR [address]7976 < Continued> Orig Print D/T: S: 04/04/2018 (1329) Probe: PAGE 2 Signed Report- US PREG UT [id number] 13:26:00 Name: [place]NY [place] : 1990 Age/S: 27 / F [address] Unit #: [id number] Loc: [place] [address] Phys: Roderick Marsh MD Acct: [id number] Dis Date: Status: REG ER PHONE #: [phone] Exam Date: 04/04/2018 1210 FAX #: Reason: abdominal pain, 5 weeks EXAMS: CPT: [id number] US PREG UT TRANSVAGINAL [address] PELVIC AND TRANSVAGINAL ULTRASOUND LOCATION: B2 CLINICAL [...] Roderick Marsh MD Technologist: Cherise Josue RDMS Trnnmb Date/Time: 04/04/2018 (9599) Taylor.JSL PAGE 1 Signed Report Name: DANNY FOLEY [facility] : 1990 Age/S: 27 / F [address] Unit #:[id number] Loc : [place] [address] Phys: Roderick Marsh MD Acct: [id number] Dis Date: Status: REG ER PHONE #: [phone] Exam Date: 04/04/2018 1210 FAX #: Reason: abdominal pain, 5 weeks EXAMS: CPT: [id number] PREG UT TRANSVAGINAL [address] <Continued> Orig Print D/T: S: 04/04/2018 (6019) Probe: [id number] PAGE 2 Signed ReportHCG [id number] 11:46:00 Test Item Value Reference Range Comments HCG SERUM (test 4414 mi-IU/ML 0-6 0 - 6 NOT code=HCG) > 6 SUGGESTIVE OF EARLY RISES TWO FOLD EVERY 2 DAYS; SUGGEST RECONFIRMING AFTER 2 DAYS. 150,000-200,[address] TRIMESTER 10,000 - 50,000 2ND & 3RD TRIMESTER COMPREHENSIVE METABOLIC [id number] 11:30:00 Test Item Value Reference Range Comments [...] (test 65 Unit/L 45-117 code=ALKP) CBC W/AUTO [id number] 11:15:00 Test Item Value Reference Range Comments [...]
[2018-06-15] MEDS ORDERED: MORPHINE 4 MG/ML SYR ONE (13:24)
[2018-06-15] MEDS ORDERED: ONDANSETRON 4 MG/2 ML VIAL ONE (13:24)
[2018-06-15 13:36] LABS: Absolute Lymphocytes (CBC) 2.7 K/uL (0.7-4.9); Absolute Monocytes 0.5 K/uL (0.1-1.3); Absolute Neutrophil 7.8 K/uL (1.8-8.0); Basophils % 0.5 % (0-1.3); Eosinophils % 0.9 % (0-4.4); Hematocrit 31.6 % (36.0-45.0); Lymphocytes % 24.6 % (15.3-44.8); MPV 8.9 fL (7.6-11.3); Monocytes % 4.6 % (3.3-12.3); RBC Red Blood Cell Count 3.63 M/uL (3.86-4.86)
[2018-06-15 13:43] LABS: BUN Blood Urea Nitrogen 7 mg/dL (7-18); Bicarbonate 21 mmol/L (21-32); Glucose Level 78 mg/dL (74-106); Potassium 3.8 mmol/L (3.5-5.1); Sodium Level 137 mmol/L (136-145)
--- NOTE | 2018-06-15 14:14 | RAD REPORT ---
EXAM DESCRIPTION: US - OB Multi Gestation - 06/15/2018 1:49 pm CLINICAL HISTORY: Known twin , fall with blunt trauma COMPARISON: April 2018 FINDINGS: Twin is again identified. All placental tissue is posterior and normal in appear ance. Amniotic fluid volume normal. No septation seen the twins. Anatomic assessment is limited at this early gestational age. No gross anatomic abnormality seen. measurements for twin A are as follows: BPD:3.29 Centimeters 16 weeks 2 days HC:12.15 Centimeters 16 weeks 0 days AC:10.17 Centimeters 16 weeks 1 day HL:2.16 Centimeters 16 weeks 4 days FL:1.90 Centimeters 15 weeks 4 days The estimated gestational age (EGA) is 16 weeks 1 day with an LA NENA of 11/29/2018. Heart rate is normal at 129 BPM. ratios are normal or within acceptable limits. measurements for twin B are as follows: BPD:3.13 Centimeters 15 weeks 6 days HC:11.69 Centimeters 15 weeks 5 days AC:10.82 Centimeters 16 weeks 5 days HL:1.95 Centimeters 15 weeks 5 days FL:1.93 Centimeters 15 weeks 5 days The estimated gestational age for twin B is 16 weeks 0 days with an LA NENA of 11/30/2018. Heart rate is 167 BPM. Feeder ratios are normal or within acceptable limits. IMPRESSION: 1. Twin gestation is identified with both twin showing normal heart rate and activ ity. No septation identifiable indicating mono chorionic mono amniotic . This can be confirm ed or followed on a subsequent examination. 2. Twin A ages 16 weeks 1 day (LA NENA 11/29/2018). Twin B is 16 weeks 0 days (LA NENA 11/30/2018). Anatomic assessment is limited at this early age. No gross abnormality seen. 3. Grade 0, posterior placenta with no low-lying or placenta previa. Only a single placenta identifie d. 4. Amniotic fluid volume is normal. 5. Cervical canal is closed. No hematoma or other suspicious finding.
[2018-06-15 14:56] LABS: Urine Blood NEGATIVE (NEG); Urine Glucose NEGATIVE (NEG); Urine Protein NEGATIVE (NEG); Urine Specific Gravity 1.015 (1.005-1.030)
[2018-06-15 15:09] LABS: Urine Bacteria 20-50 /HPF (<20); Urine Culture Reflex Order NOT NEEDED; Urine RBC <5 /HPF (NONE SEEN)
[2018-06-15] MEDS ORDERED: METOCLOPRAMIDE 10 MG/2mL INJ ONE (15:16)
[2018-06-15] MEDS ORDERED: FAMOTIDINE 20 MG/2 ML VIAL IV ONE (15:17)
[2018-06-15] MEDS ORDERED: NA CHLORIDE 0.9% 1,000 ML ONE (15:17)
--- NOTE | 2018-06-15 15:34 | RAD REPORT ---
EXAM DESCRIPTION: CT - CTHCSPWOC - 06/15/2018 3:19 pm CLINICAL HISTORY: Trauma, head and neck injury. fall - possible head injury/MANUEL;Pain COMPARISON: <Comparisons> TECHNIQUE: Axial 5 mm thick images of the head were obtained. Axial 2 mm thick images of the cervical spine were obtained with sagittal and coronal reconstruction images generated and reviewed. All CT scans are performed using dose optimization technique as appropriate and may include automated exposure control or mA/KV adjustment according to patient size. FINDINGS: CT HEAD WITHOUT CONTRAST: No acute hemorrhage, hydrocephalus or extra-axial collection is identified.No areas of brain edema or midline shift. Mild polypoid mucosal thickening is present in both maxillary antra.The calvarium is intact. CT CERVICAL SPINE WITHOUT CONTRAST: No fracture or subluxation.No prevertebral soft tissues swelling is identified. IMPRESSION: No acute intracranial or cervical spine findings.
--- NOTE | 2018-06-15 15:54 | ER ---
Nurse's Notes [facility] Name: Lacey Gross Age: 28 yrs Sex: Female : 1990 Arrival Date: 06/15/2018 Time: 12:49 Bed 26 Private MD: Diagnosis: Migraine;Syncope and collapse;Abdominal and pelvic pain;Twin gestational Presentation: 06/15 12:51 Presenting complaint: EMS states: syncopal episode, pt states that she was going to the [facility] bathroom and woke up on the floor, woke up with abdominal pain that she didn't have before, pt hit head. Transition of care: patient was not received from another setting of care. Onset of symptoms was June 15, 2018 at 12:53. Care prior to arrival: IV initiated. 20 GA, in the left antecubital area. 12:51 Method Of Arrival: EMS: [facility] 5 12:51 Acuity: RODOLFO 3 dm5 13:00 Risk Assessment: Do you want to hurt yourself or someone else? Patient reports no ca1 desire to harm self or others. Initial Sepsis Screen: Does the patient meet any 2 criteria? No. Patient's initial sepsis screen is negative. Does the patient have a suspected source of infection? No. Patient's initial sepsis screen is negative. Triage Assessment: 13:00 General: Appears in no apparent distress. uncomfortable, Behavior is calm, cooperative, ca1 appropriate for age. Pain: Complains of pain in face, suprapubic area and right lower quadrant Pain currently is 7 out of 10 on a pain scale. Pain began 4 hours ago. Neuro: Reports headache in entire since worst this morning. But has HX of migraines. 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 - Social history:: Smoking status: Patient/guardian denies using tobacco. - Ebola Screening: : No symptoms or risks identified at this time. Screenin:31 Abuse screen: Denies threats or abuse. Denies injuries from another. Nutritional ss screening: No deficits noted. Tuberculosis screening: Never had TB. Fall Risk Fall in past 12 months (25 points). Secondary diagnosis (15 points) syncope. IV access (20 points). Ambulatory Aid- None/Bed Rest/Nurse Assist (0 pts). Gait- Normal/Bed Rest/Wheelchair (0 pts) Mental Status- Oriented to own ability (0 pts). Assessment: 13:05 General: Appears in no apparent distress. uncomfortable, Behavior is calm, cooperative, ca1 appropriate for age. Pain: Complains of pain in abdomen and face and right lower quadrant and suprapubic area Pain currently is 7 out of 10 on a pain scale. Pain began 4 hours ago. Is continuous. Neuro: Level of Consciousness is awake, alert, obeys commands, Oriented to person, place, time, situation. Neuro: Reports headache in entire. Cardiovascular: Heart tones S1 S2 present Capillary refill < 3 seconds Patient's skin is warm and dry. Rhythm is sinus rhythm. Respiratory: Airway is patent Respiratory effort is even, unlabored, Respiratory pattern is regular, symmetrical, Breath sounds are clear bilaterally. GI: Abdomen is round non-distended, Bowel sounds present X 4 quads. Abd is soft X 4 quads Abdomen is tender to palpation in right lower quadrant Reports nausea, vomiting. : No deficits noted. No signs and/or symptoms were reported regarding the genitourinary system. EENT: No deficits noted. No signs and/or symptoms were reported regarding the EENT system. Derm: Skin is intact, is healthy with good turgor, Skin is pink, warm \T\ dry. Musculoskeletal: Circulation, motion, and sensation intact. Capillary refill < 3 seconds. 13:31 Reassessment: Pt to ultrasound. ss 14:20 Reassessment: Patient appears in no apparent distress at this time. Patient and/or ca1 family updated on plan of care and expected duration. Pain level reassessed. Patient is alert, oriented x 3, equal unlabored respirations, skin warm/dry/pink. Back from US. Assisted pt to bedside commode. 15:13 Reassessment: Pt to CT scan. ca1 Vital Signs: 13:00 BP 117 / 75; Pulse 81; Resp 17 S; Temp 98.8(O); Pulse Ox 97% on R/A; Weight 113.4 kg; ca1 Height 5 ft. 7 in. (170.18 cm); Pain 7/10; 14:20 BP 119 / 75; Pulse 85; Resp 17 S; Temp 98.7(O); Pulse Ox 99% on R/A; ca1 16:18 BP 96 / 54; Pulse 84; Resp 17; Temp 98.4; Pulse Ox 98% ; rv 13:00 Body Mass Index 39.16 (113.40 kg, 170.18 cm) ca1 ED Course: 12:49 Patient arrived in ED. dm5 12:53 Triage completed. dm5 12:53 EKG done, reviewed by Gal Ribera MD. sm3 13:00 Arm band placed on right wrist. ca1 13:02 Gal Ribera MD is Attending Physician. dm5 13:05 Maintain EMS IV. Dressing intact. Good blood return noted. Site clean \T\ dry. Gauge \T\ ca 1 site: G20 LAC. 13:07 Nellie Reyes RN is Primary Nurse. ca1 13:10 Warm blanket given. ca1 13:20 Patient has correct armband on for positive identification. Placed in gown. Bed in low ss position. Call light in reach. Side rails up X 1. monitor tech on. Pulse ox on. NIBP on. 13:50 OB Multi Gestation In Process Unspecified. EDMS 14:33 Urine collected: clean catch specimen, cloudy, Amount Voided: 220mL sent to lab. ca1 15:[address] via stretcher. nj 15:18 CT completed. Patient tolerated procedure well. Patient moved back from ME. nj 15:20 CT Head C Spine In Process Unspecified. EDMS 16:17 No provider procedures requiring assistance completed. IV discontinued, intact, rv bleeding controlled, No redness/swelling at site. Pressure dressing applied. Administered Medications: 13:30 Drug: Zofran 4 mg Route: IVP; Site: left antecubital; ca1 16:03 Follow up: Response: No adverse reaction; Nausea is decreased ca1 13:32 Drug: morphine 4 mg Route: IVP; Site: left antecubital; ca1 16:04 Follow up: Response: No adverse reaction; Pain is decreased ca1 15:05 Drug: NS 0.9% 1000 ml Route: IV; Rate: 1 bolus; Site: left antecubital; ca1 16:04 Follow up: Response: No adverse reaction; IV Status: Completed infusion ca1 15:07 Drug: Reglan 10 mg Route: IVP; Site: left antecubital; ca1 16:04 Follow up: Response: No adverse reaction; Pain is decreased ca1 15:10 Drug: Pepcid 20 mg Route: IVP; Site: left antecubital; ca1 16:05 Follow up: Response: No adverse reaction; Nausea is decreased ca1 Point of Care Testing: Blood Glucose: 13:27 Blood Glucose: 75 mg/dL; ca1 Ranges: Outcome: 15:53 Discharge ordered by . kdr 16:17 Discharged to home ambulatory. rv 16:17 Condition: good 16:17 Discharge instructions given to patient, Instructed on discharge instructions, follow up and referral plans. medication usage, Demonstrated understanding of instructions, follow-up care, medications, Prescriptions given X 1. 16:18 Patient left the ED. rv Signatures: Dispatcher [employer] EDMS Wendy Pollock RN RN Gal Ibrahim MD MD kdr Smirch, Shelby, RN RN Russell Moura Shakira [facility] Vito Vazquez RN RN rv Nellie Reyes RN RN ca1
--- NOTE | 2018-06-15 15:54 | EDPHYS ---
Physician Documentation [facility] Name: Lacey Gross Age: 28 yrs Sex: Female : 1990 Arrival Date: 06/15/2018 Time: 12:49 Bed 26 Private MD: ED Physician Gal Ribera HPI: 06/15 15:38 This 28 yrs old Female presents to ER via EMS with complaints of Syncope - 16 kdr weeks . 15:38 The patient has experienced syncope, collapsed. Onset: The symptoms/episode kdr began/occurred acutely, suddenly, just prior to arrival. Duration: This was a single episode, that lasted an unknown period of time. Context: occurred at home, occurred while the patient was walking, Just prior to the episode the patient experienced headache, The patient had had a sere migraine MANUEL for the last few days and walking when she passed out and hit the floor. She still is c/o head pain right > left. Associated injury: Abdomen: pain. Associated signs and symptoms: The patient has no apparent associated signs or symptoms. Current symptoms: MANUEL worse on right but global and RLQ/ede-umbilical pain. The patient has not experienced similar symptoms in the past, has a history of migraine MANUEL. The patient has not recently seen a physician. HOG RIBBER: 13:00 LMP 11/2017 ca1 Historical: - Allergies: 12:54 No Known Allergies; dm5 - Home Meds: 12:54 thyroid medication - unknown [Active]; Vitamin Oral [Active]; dm5 - PMHx: 12:50 Complex migraines; dm5 12:54 Hypothyroidism; dm5 - Immunization history:: Flu vaccine is up to date. - Social history:: Smoking status: Patient/guardian denies using tobacco. - Ebola Screening: : No symptoms or risks identified at this time. ROS: 15:38 Constitutional: Negative for fever, chills, and weight loss, Eyes: Negative for injury, kdr pain, redness, and discharge, ENT: Negative for injury, pain, and discharge, Neck: Negative for injury, pain, and swelling, Cardiovascular: Negative for chest pain, palpitations, and edema, Respiratory: Negative for shortness of breath, cough, wheezing, and pleuritic chest pain, Back: Negative for injury and pain, : Negative for injury, bleeding, discharge, and swelling, MS/Extremity: Negative for injury and deformity, Skin: Negative for injury, rash, and discoloration, Psych: Negative for depression, anxiety, suicide ideation, homicidal ideation, and hallucinations, Allergy/Immunology: Negative for hives, rash, and allergies, Endocrine: Negative for neck swelling, polydipsia, polyuria, polyphagia, and marked weight changes, Hematologic/Lymphatic: Negative for swollen nodes, abnormal bleeding, and unusual bruising. 15:38 Abdomen/GI: Positive for abdominal pain, nausea, Negative for constipation, abdominal distension. 15:38 Neuro: Positive for headache, syncope. Exam: 15:38 Constitutional: This is a well developed, well nourished patient who is awake, alert, kdr and in no acute distress. Head/Face: Normocephalic, atraumatic. Eyes: Pupils equal round and reactive to light, extra-ocular motions intact. Lids and lashes normal. Conjunctiva and sclera are non-icteric and not injected. Cornea within normal limits. Periorbital areas with no swelling, redness, or edema. Neck: Trachea midline, no thyromegaly or masses palpated, and no cervical lymphadenopathy. Supple, full range of motion without nuchal rigidity, or vertebral point tenderness. No Meningismus. Chest/axilla: Normal chest wall appearance and motion. Nontender with no deformity. No lesions are appreciated. Cardiovascular: Regular rate and rhythm with a normal S1 and S2. No gallops, murmurs, or rubs. Normal PMI, no JVD. No pulse deficits. Respiratory: Lungs have equal breath sounds bilaterally, clear to auscultation and percussion. No rales, rhonchi or wheezes noted. No increased work of breathing, no retractions or nasal flaring. Abdomen/GI: Soft, non-tender, with normal bowel sounds. No distension or tympany. No guarding or rebound. No evidence of tenderness throughout. Back: No spinal tenderness. No costovertebral tenderness. Full range of motion. Skin: Warm, dry with normal turgor. Normal color with no rashes, no lesions, and no evidence of cellulitis. MS/ Extremity: Pulses equal, no cyanosis. Neurovascular intact. Full, normal range of motion. Neuro: Awake and alert, GCS 15, oriented to person, place, time, and situation. Cranial nerves II-XII grossly intact. Motor strength 5/5 in all extremities. Sensory grossly intact. Cerebellar exam normal. Normal gait. Psych: Awake, alert, with orientation to person, place and time. Behavior, mood, and affect are within normal limits. Vital Signs: 13:00 BP 117 / 75; Pulse 81; Resp 17 S; Temp 98.8(O); Pulse Ox 97% on R/A; Weight 113.4 kg; ca1 Height 5 ft. 7 in. (170.18 cm); Pain 7/10; 14:20 BP 119 / 75; Pulse 85; Resp 17 S; Temp 98.7(O); Pulse Ox 99% on R/A; ca1 16:18 BP 96 / 54; Pulse 84; Resp 17; Temp 98.4; Pulse Ox 98% ; rv 13:00 Body Mass Index 39.16 (113.40 kg, 170.18 cm) ca1 MDM: 15:38 Data reviewed: vital signs, nurses notes, lab test result(s), radiologic studies. kdr Counseling: I had a detailed discussion with the patient and/or guardian regarding: the historical points, exam findings, and any diagnostic results supporting the discharge/admit diagnosis, lab results, radiology results, the need for outpatient follow up. 15:53 Patient medically screened. kdr 06/15 13:00 Order name: Abo/rh Typing; Complete Time: 14:27 dm5 06/15 13:00 Order name: Basic Metabolic Panel; Complete Time: 14:27 dm5 06/15 13:00 Order name: CBC with Diff; Complete Time: 14:27 dm5 06/15 13:28 Order name: Glucose, Ancillary Testing; Complete Time: 14:27 EDMS 06/15 14:31 Order name: Urine Microscopic Only; Complete Time: 15:37 ca1 06/15 14:48 Order name: Urine Dipstick--Ancillary (enter results); Complete Time: 15:37 eb 06/15 13:32 Order name: OB Multi Gestation; Complete Time: 14:27 EDMS 06/15 14:29 Order name: CT Head C Spine; Complete Time: 15:37 kdr 06/15 14:48 Order name: Urine --Ancillary (enter results); Complete Time: 15:37 eb 06/15 13:00 Order name: Urine Test (obtain specimen); Complete Time: 14:31 dm5 09 13:00 Order name: IV Saline Lock; Complete Time: 13:06/15 13:00 Order name: Labs collected and sent; Complete Time: 13:06/15 13:00 Order name: NPO; Complete Time: 13:06/15 13:00 Order name: Urine Dipstick-Ancillary (obtain specimen); Complete Time: 14:31 06/15 14:16 Order name: EKG Electrocardiogram; Complete Time: 15:51 EDMS Administered Medications: 13:30 Drug: Zofran 4 mg Route: IVP; Site: left antecubital; ca1 16:03 Follow up: Response: No adverse reaction; Nausea is decreased ca1 13:32 Drug: morphine 4 mg Route: IVP; Site: left antecubital; ca1 16:04 Follow up: Response: No adverse reaction; Pain is decreased ca1 15:05 Drug: NS 0.9% 1000 ml Route: IV; Rate: 1 bolus; Site: left antecubital; ca1 16:04 Follow up: Response: No adverse reaction; IV Status: Completed infusion ca1 15:07 Drug: Reglan 10 mg Route: IVP; Site: left antecubital; ca1 16:04 Follow up: Response: No adverse reaction; Pain is decreased ca1 15:10 Drug: Pepcid 20 mg Route: IVP; Site: left antecubital; ca1 16:05 Follow up: Response: No adverse reaction; Nausea is decreased ca1 Point of Care Testing: Blood Glucose: 13:27 Blood Glucose: 75 mg/dL; ca1 Ranges: Critical Glucose Levels:Adult <50 mg/dl or >400 mg/dl <40 mg/dl or >180 mg/dl Disposition: 06/15/18 15:53 Discharged to Home. Impression: Migraine, Syncope and collapse, Abdominal and pelvic pain, Twin gestational . - Condition is Stable. - Discharge Instructions: Abdominal Pain, Adult, [id number], Syncope, [id number], Migraine Headache, [id number], Recurrent Migraine Headache, [id number]. - Prescriptions for Tylenol- Codeine #4 300-60 mg Oral Tablet - take 1 tablet by ORAL route every 4-6 hours As needed; 12 tablet. - Medication Reconciliation Form, Thank You Letter form. - Follow up: Private Physician; When: 2 - 3 days; Reason: If symptoms return, Further diagnostic work-up, Recheck today's complaints, Continuance of care, Re-evaluation by your physician. - Problem is new. - Symptoms have improved. Signatures: Dispatcher [employer] [facility] MarisWendy, RN RN dm5 Gal Ribera MD MD kdr Vito Vazquez RN RN rv Eric, ELAINA Ballard RN ca1 Corrections: (The following items were deleted from the chart) 13:32 13:01 OB Complete+US.RAD.BRZ ordered. [facility] 16:18 15:53 06/15/2018 15:53 Discharged to Home. Impression: Migraine; Syncope and collapse; rv Abdominal and pelvic pain; Twin gestational . Condition is Stable. Forms are Medication Reconciliation Form, Thank You Letter, Antibiotic Education, Prescription Opioid Use. Follow up: Private Physician; When: 2 - 3 days; Reason: If symptoms return, Further diagnostic work-up, Recheck today's complaints, Continuance of care, Re-evaluation by your physician. Problem is new. Symptoms have improved. kdr
--- NOTE | 2018-06-16 07:14 | EKG ---
Test Date: 2018-06-15 Test Time: 12:53:08 Silver Plater: ALICIA MEASUREMENT RESULTS: Intervals: Rate: 78 CT: 162 QRSD: 82 QT: 388 QTc: 442 [place]: P: 5 CT: 162 QRS: 25 T: 13 INTERPRETIVE STATEMENTS: Normal sinus rhythm Normal ECG Compared to ECG 05/16/2018 10:42:10 No significant changes Electronically Signed On 06-16-18 07:11:36 CDT by Chapito Bateman
== END 2018-06-15 16:18 | disposition home or self-care (01) ==
LOC: ER 12:51
DX: O26.892 Other specified pregnancy related conditions, second trimester (principal); R55 Syncope and collapse; G43.909 Migraine, unspecified, not intractable, without status migrainosus; O30.012 Twin pregnancy, monochorionic/monoamniotic, second trimester; Z3A.16 16 weeks gestation of pregnancy
CPT/HCPCS: 36415; 70450; 72125; 76810; 80048; 81003; 81015; 81025; 82962; 85025; 86900; 86901; 93005; 96361; 96374; 96375; 99285; J2405; J2765; J7030